=== PATIENT | female | born 1960 | race African-American/Black ===

== ENCOUNTER 2018-06-09 11:05 | Inpatient (IN) | payer MEDICAID ==
[~2018-06-09] VITALS: Ht 157.5 cm; Wt 62.6 kg
[~2018-06-09 11:05] MED LIST: ASPI-1159 PO
[2018-06-09 12:46] LABS: BASOPHILS % 0.5 % (0.0-2.0); EOSINOPHILS % 1.4 % (0.0-5.0); HEMATOCRIT. 42.9 % (36.0-48.0); HEMOGLOBIN. 14.8 g/dL (12.0-16.0); MEAN CORPUSCULAR HEMOGLOBIN 29.4 pg (28.0-32.0); MEAN CORPUSCULAR VOLUME 85.5 fL (81.0-99.0); MEAN PLATELET VOLUME 7.7 fl (7.4-10.4); MONOCYTES % 6.2 % (2.0-8.0); NEUTROPHILS % 75.9 % (40.0-76.0); PLATELET 355 x1000/uL (130-400); RED BLOOD CELL COUNT 5.02 mill/uL (4.2-5.4); RED CELL DISTRIBUTION WIDTH 14.1 % (11.6-14.6)
[2018-06-09 12:51] LABS: CHLORIDE 101 mEq/L (98-107)
[2018-06-09] MEDS ORDERED: HYDROCODONE/ACETAMINOPHEN 5/325MG TABLET PO ONE (14:00)
[2018-06-09 21:15] VITALS: BP 109/72
[2018-06-09] MEDS ORDERED: LISI-604 PO (22:32)
[2018-06-09] MEDS ORDERED: AMLO5TAB4 PO (22:32)
[2018-06-09] MEDS ORDERED: METR500T PO (22:34)
[2018-06-09 22:49] VITALS: BP 109/72
[2018-06-10] VITALS: BP 110/67
[2018-06-10] MEDS ORDERED: ACETAMINOPHEN 325MG TABLET PO PRN (00:45)
[2018-06-10] MEDS ORDERED: ONDANSETRON HCL 4MG/2ML INJ IV PRN (00:45)
[2018-06-10] MEDS: TEMAZEPAM 15MG CAPSULE PO PRN ×2 (01:09→22:14)
[2018-06-10 04:00] VITALS: BP 110/75
[2018-06-10 06:32] LABS: BASOPHILS % 0.5 % (0.0-2.0); EOSINOPHILS % 3.8 % (0.0-5.0); HEMATOCRIT. 40.5 % (36.0-48.0); HEMOGLOBIN. 13.7 g/dL (12.0-16.0); LYMPHOCYTES % 30.9 % (20.0-50.0); MEAN CORPUSCULAR HEMOGLOBIN 29.1 pg (28.0-32.0); MEAN CORPUSCULAR VOLUME 85.8 fL (81.0-99.0); MEAN PLATELET VOLUME 7.7 fl (7.4-10.4); MONOCYTES % 7.1 % (2.0-8.0); NEUTROPHILS % 57.7 % (40.0-76.0); PLATELET 315 x1000/uL (130-400); RED BLOOD CELL COUNT 4.72 mill/uL (4.2-5.4); RED CELL DISTRIBUTION WIDTH 14.2 % (11.6-14.6)
[2018-06-10] MEDS: OMEPRAZOLE 20MG CAPSULE EXTENDED RELEASE PO SCH (06:42)
[2018-06-10] MEDS ORDERED: REGADENOSON 0.4 MG/5 ML IV ONE (06:45)
[2018-06-10 08:00] VITALS: BP 100/69
[2018-06-10] MEDS: LISINOPRIL 20MG TABLET PO SCH (08:09)
[2018-06-10] MEDS: ENOXAPARIN 40MG/0.4ML SYR SUBCUT SCH (08:09)
[2018-06-10] MEDS: AMLODIPINE 5MG TABLET PO SCH (08:09)
[2018-06-10] MEDS: ASPIRIN 81MG TABLET PO SCH (08:10)
[2018-06-10 08:37] LABS: CHLORIDE 105 mEq/L (98-107)
[2018-06-10 08:48] LABS: LDL CHOLESTEROL 148 mg/dL (5-100)
[2018-06-10 08:49] LABS: CREATINE KINASE 68 IU/L (26-192); HDL CHOLESTEROL 39 mg/dL (40-59)
[2018-06-10 08:53] LABS: CREATINE KINASE MB FRACTION < 1.0 ng/mL (0.5-3.6)
[2018-06-10] MEDS ORDERED: MEDICATION NOT ON FORMULARY EA (Lisinopril 1 TAB) PO SCH (09:00)
[2018-06-10] MEDS ORDERED: MEDICATION NOT ON FORMULARY EA (Amlodipine Besylate (Norvasc) 1 TAB) PO SCH (09:00)
[2018-06-10 12:00] VITALS: BP 109/75
[2018-06-10] MEDS: GUAIFENESIN-DM 200MG-20MG/10ML UDC PO PRN ×2 (14:51→22:00)
[2018-06-10 16:00] VITALS: BP 103/68
[2018-06-10] MEDS ORDERED: ATORVASTATIN CALCIUM 20MG TABLET PO SCH (21:00)
[2018-06-11] VITALS: BP 122/80
[2018-06-11 04:00] VITALS: BP 129/85
[2018-06-11] MEDS: OMEPRAZOLE 20MG CAPSULE EXTENDED RELEASE PO SCH (06:28)
[2018-06-11 07:19] LABS: BASOPHILS % 0.6 % (0.0-2.0); HEMATOCRIT. 42.5 % (36.0-48.0); HEMOGLOBIN. 14.6 g/dL (12.0-16.0); LYMPHOCYTES % 24.8 % (20.0-50.0); MEAN CORPUSCULAR HEMOGLOBIN 29.5 pg (28.0-32.0); MEAN CORPUSCULAR VOLUME 86.2 fL (81.0-99.0); MONOCYTES % 6.8 % (2.0-8.0); NEUTROPHILS % 63.8 % (40.0-76.0); PLATELET 305 x1000/uL (130-400); RED BLOOD CELL COUNT 4.94 mill/uL (4.2-5.4); RED CELL DISTRIBUTION WIDTH 14.4 % (11.6-14.6)
[2018-06-11 07:47] LABS: CHLORIDE 104 mEq/L (98-107)
[2018-06-11 08:00] VITALS: BP 126/83
[2018-06-11 08:02] LABS: CREATINE KINASE 57 IU/L (26-192)
[2018-06-11] MEDS: ENOXAPARIN 40MG/0.4ML SYR SUBCUT SCH (08:38)
[2018-06-11] MEDS: ASPIRIN 81MG TABLET PO SCH (08:42)
[2018-06-11] MEDS: AMLODIPINE 5MG TABLET PO SCH (08:42)
[2018-06-11] MEDS: LISINOPRIL 20MG TABLET PO SCH (08:42)
[2018-06-11] MEDS ORDERED: REGADENOSON 0.4 MG/5 ML IV ONE (09:16)
[2018-06-11 10:39] VITALS: BP 126/83
[2018-06-11 12:00] VITALS: BP 139/88
[2018-06-12] MEDS ORDERED: FAMOTIDINE 20MG TABLET PO SCH (09:00)
== END 2018-06-11 15:20 | disposition home or self-care (01) | DRG 198 ==
LOC: ER 11:05 → 8WST 13:40 → EDBEDREQ 13:42 → ENRESERV 20:06
PROVIDERS: ADMIT Internal Medicine; ATTEND Internal Medicine
DX: R07.89 Other chest pain (principal); I25.10 Atherosclerotic heart disease of native coronary artery without angina pectoris; I11.9 Hypertensive heart disease without heart failure; E78.5 Hyperlipidemia, unspecified; F41.9 Anxiety disorder, unspecified; R55 Syncope and collapse; F17.210 Nicotine dependence, cigarettes, uncomplicated; Z86.73 Personal history of transient ischemic attack (TIA), and cerebral infarction without residual deficits; Z90.710 Acquired absence of both cervix and uterus; Z79.82 Long term (current) use of aspirin
CPT/HCPCS: 36415; 71045; 78452; 80048; 80061; 82550; 82553; 83036; 83880; 84443; 84484; 85379; 93005; 93017; 93306; 99285; A9500; J1650; J2785

== ENCOUNTER 2019-05-02 14:18 | Emergency (ER) | payer SELFPAY ==
[~2019-05-02] VITALS: Ht 160 cm; Wt 63.0 kg
[~2019-05-02 14:18] MED LIST changes: +AMLO5TAB4 PO; -ASPI-1159 PO; +ASPI-1497 PO; +LISI-604 PO; +METR500T PO
[2019-05-02] MEDS ORDERED: KETOROLAC 60MG/2ML VIAL IM ONE (16:30)
[2019-05-02 16:50] VITALS: BP 180/105
== END 2019-05-02 17:34 | disposition home or self-care (01) ==
LOC: ER 14:18
DX: S16.1XXA Strain of muscle, fascia and tendon at neck level, initial encounter (principal); I10 Essential (primary) hypertension; Z90.710 Acquired absence of both cervix and uterus; Z98.890 Other specified postprocedural states; Z79.899 Other long term (current) drug therapy; Z79.82 Long term (current) use of aspirin; V49.88XA Car occupant (driver) (passenger) injured in other specified transport accidents, initial encounter; Y93.89 Activity, other specified; Y92.89 Other specified places as the place of occurrence of the external cause; Y99.8 Other external cause status
CPT/HCPCS: 96372; 99283; J1885